=== PATIENT | female | born 1960 | race Caucasian/White ===

== ENCOUNTER → 2023-05-14 11:22 | Outpatient (REF) | payer MEDICARE, BC, SELFPAY | LOC: DHCBS HW 11:22 | PROVIDERS: ATTENDING PHYSICIAN Internal Medicine Cardiovascular Disease; FAMILY PHYSICIAN Nurse Practitioner Adult Health | DX: R94.31 Abnormal electrocardiogram [ECG] [EKG] (principal) | CPT/HCPCS: 93306 ==

== ENCOUNTER → 2023-08-07 10:19 | Outpatient (REF) | payer MEDICARE, BC, SELFPAY | LOC: HWRAD 10:19 | PROVIDERS: ATTENDING PHYSICIAN Internal Medicine Rheumatology; FAMILY PHYSICIAN Nurse Practitioner Adult Health | DX: M81.0 Age-related osteoporosis without current pathological fracture (principal); M85.89 Other specified disorders of bone density and structure, multiple sites | CPT/HCPCS: 77080; 77081 ==

== ENCOUNTER → 2023-10-23 09:23 | Outpatient (REF) | payer MEDICARE, BC, SELFPAY | LOC: HWWDC 09:23 | PROVIDERS: ATTENDING PHYSICIAN Nurse Practitioner Adult Health | DX: Z12.31 Encounter for screening mammogram for malignant neoplasm of breast (principal) | CPT/HCPCS: 77063; 77067 ==